=== PATIENT | male | born 1960 | race Caucasian/White ===

== ENCOUNTER 2019-01-04 10:09 | Day surgery (SDC) | payer BC ==
[~2019-01-04] VITALS: Ht 182.9 cm; Wt 93.0 kg
[2019-01-04] VITALS (9 sets, daily range): BP systolic 106–137; BP diastolic 50–82
[~2019-01-04 10:09] MED LIST: ceFAZolin sod 1 GM in NS 55 ML IVPB ONE
[2019-01-04] MEDS ORDERED: Kenalog-40 1ml Vial ONE (10:36)
[2019-01-04] MEDS ORDERED: Cocaine HCl 4% 4ml vial TOPIC ONE ×2 (10:36→11:46)
[2019-01-04] MEDS ORDERED: Oxymetazoline 0.05% Na Spray 30ml NASAL ONE ×2 (10:37→11:46)
[2019-01-04] MEDS ORDERED: Lidocaine 1% 10mg/ml/EPI 0.01mg/ml 50ml INJ ONE ×2 (10:37→11:46)
[2019-01-04] MEDS ORDERED: ASPIR 8181 MG ORAL (11:02)
[2019-01-04] MEDS ORDERED: LR 1000ml 1,000 ML IVLG SCH (11:22)
[2019-01-04] MEDS ORDERED: Bacitracin Oint UD TOPIC ONE (11:27)
[2019-01-04] MEDS ORDERED: Meperidine 50mg/ml Inj(FOR RIGORS ONLY) IVP PRN (11:30)
[2019-01-04] MEDS ORDERED: Acetaminophen (Non formulary) 100 ML IV ONE (11:30)
[2019-01-04] MEDS ORDERED: Sterile Water Irrig 1000ml IRRIG ONE (11:30)
[2019-01-04] MEDS ORDERED: Atropine Sulfate 0.4mg/ml inj IVP PRN (11:30)
[2019-01-04] MEDS ORDERED: Hydromorphone 0.5mg/0.5ml inj IVP PRN (11:30)
[2019-01-04] MEDS ORDERED: HYDROcodone/Acetamin 7.5/325 tab ORAL PRN (11:30)
[2019-01-04] MEDS ORDERED: Zemuron 50mg/5ml Inj IV ONE (11:30)
[2019-01-04] MEDS ORDERED: Labetalol 5mg/ml 20ml vial IV PRN (11:30)
[2019-01-04] MEDS ORDERED: DiphenhydrAMINE 50mg/ml Inj IVP PRN (11:30)
[2019-01-04] MEDS ORDERED: LORazepam Inj 2mg/ml 1ml IV PRN (11:30)
[2019-01-04] MEDS ORDERED: Labetalol 5mg/ml 20ml vial IV ONE (11:30)
[2019-01-04] MEDS ORDERED: Midazolam 2mg/2ml Inj IVP PRN (11:30)
[2019-01-04] MEDS ORDERED: Propofol 1,000mg/ 100ml btl IV ONE (11:30)
[2019-01-04] MEDS ORDERED: Ketorolac 30mg Inj IV PRN ×2 (11:30)
[2019-01-04] MEDS ORDERED: Metoclopramide 10mg/2ml Inj IVP PRN ×2 (11:30→16:30)
[2019-01-04] MEDS ORDERED: fentaNYL 100 mcg/2 mL IV PRN (11:30)
[2019-01-04] MEDS ORDERED: HYDROcodone/Acetamin 5/325 tab ORAL PRN (11:30)
[2019-01-04] MEDS ORDERED: LR 1000ml ONE (11:30)
[2019-01-04] MEDS ORDERED: oxyCODONE HCL/Acetaminophen 5/325mg ORAL PRN (11:30)
--- NOTE | 2019-01-04 11:35 | Pre-Procedure Note/Attestation ---
Pre-Procedure Note/Attestation Complete Prior to Procedure Planned Procedure: not applicable Procedure Narrative: nasal obstruction unresponsive to medication Indications for Procedure Pre-Operative Diagnosis: septal deviation, bilateral hypertrophied inferior turbinates, obstructing nasal deformity Attestation I attest that I discussed the nature of the procedure; its benefits; risks and complications; and alternatives (and the risks and benefits of such alternatives ), prior to the procedure, with the patient (or the patient's legal product sales representative). I attest that, if there was a reasonable possibility of needing a blood transfusion, the patient (or the patient's legal product sales representative) was given the [facility] standardized written summary, pursuant to the [employer] Blood Safety Act ([place] Health and Safety Code # 1645, as amended). I attest that I re-evaluated the patient just prior to the surgery and that there has been no change in the patient's H&P, except as documented below: Calos Levine MD Jan 04, 2019 11:35
[2019-01-04] MEDS ORDERED: NS Irrig 1000ml IRRIG ONE (11:46)
[2019-01-04] MEDS ORDERED: Betadine 4oz Bottle TOPIC ONE (11:46)
[2019-01-04] MEDS ORDERED: Lidocaine 1% Plain 30 ml INJ ONE ×3 (11:47→13:15)
[2019-01-04] MEDS ORDERED: fentaNYL 100 mcg/2 mL IV ONE ×2 (11:48→14:31)
[2019-01-04] MEDS ORDERED: Sodium Chloride 10ml vial INJ ONE (11:48)
[2019-01-04] MEDS ORDERED: Lidocaine 1% MPF 10mg/ml 5ml ONE (11:48)
[2019-01-04] MEDS ORDERED: Dexamethasone 4mg/ml vial ONE (11:48)
[2019-01-04] MEDS ORDERED: Ketamine 500mg Inj ONE (12:33)
[2019-01-04] MEDS ORDERED: Betadine 10% Oint 30gm TOPIC ONE (14:55)
[2019-01-04] MEDS ORDERED: Neostigmine 1mg/ml 10ml Inj ONE (14:59)
[2019-01-04] MEDS ORDERED: Glycopyrrolate 0.2mg/ml 1ml Vial ONE (14:59)
--- NOTE | 2019-01-04 15:33 | Brief Operative Note ---
Immediate Post Operative Note Operative Note Pre-op Diagnosis: septal deviation, bilateral hypertrophied inferior turbinates, obstructing nasal deformity Procedure: septoplasty, bilateral inferior turbinectomies with intramural coagulation, repair of obstructing nasal deformity with bank ribt cartilage Post-op Diagnosis: same as pre-op Surgeon: Calos Levine M.D. Anesthesiologist: Ashish Anesthesia: general Specimen: yes - septum Complications: none Condition: stable Fluids: ringers lactate Estimated Blood Loss: minimal Drains: none Packing: telfa Implant(s) used?: Yes - bank rib cartilage Calos Levine MD Jan 04, 2019 15:33
--- NOTE | 2019-01-04 15:56 | Anethesia Preoperative Eval ---
Anesthesia Pre-op PMH/ROS General Date of Evaluation: Jan 04, 2019 Time of Evaluation: 11:41 Anesthesiologist: Eda ASA Score: ASA 3 Mallampati Score Class I : Soft palate, uvula, fauces, pillars visible Class II: Soft palate, uvula, fauces visible Class III: Soft palate, base of uvula visible Class IV: Only hard plate visible Mallampati Classification: Class III Surgeon: Julianna Diagnosis: Deviated Septum Surgical Procedure: Septoplasty, Turbinectomies Anesthesia History: none Family History: no anesthesia problems Allergies: Coded Allergies: No Known Allergies (Unverified , 12/13/18) Medications: see eMAR Patient NPO?: Yes Past Medical History Cardiovascular: Reports: arrhythmia - AFib Ablated Neurologic/Psychiatric: Reports: other - Epilepsy PSxH Narrative: Back Sx Anesthesia Pre-op Phys. Exam Physician Exam Last Vital Signs Date Time Temp Pulse Resp B/P (MAP) Pulse Ox O2 Delivery O2 Flow Rate FiO2 01/04/19 11:17 Room Air 01/04/19 11:11 97.7 62 18 117/72 99 Constitutional: NAD Neurologic: CN 2-12 intact Cardiovascular: RRR Respiratory: CTA Gastrointestinal: S/NT/ND Airway Exam Mallampati Score: Class III MO: full ROM: limited Teeth: intact Anesthesia Pre-op A/P Risk Assessment & Plan Assessment: ASA 3 Plan: GA, SED, GlideScope Go Pre-Antibiotics Dru Grams Ancef IV Given Within 1 Hr of Incision: Yes Time Given: 12:01 Tarun Veras MD Jan 04, 2019 15:56
--- NOTE | 2019-01-04 15:59 | Immediate Post-Op Evaluation ---
Immediate Post-Op Evalulation Immediate Post-Op Evalulation Procedure: eptoplasty, Turbinectomies Date of Evaluation: Jan 04, 2019 Time of Evaluation: 16:03 IV Fluids: 1000 LR Blood Products: 0 Estimated Blood Loss: 75 Urinary Output: 0 Blood Pressure Systolic: 118 Blood Pressure Diastolic: 75 Pulse Rate: 77 Respiratory Rate: 16 O2 Sat by Pulse Oximetry: 99 Temperature (Fahrenheit): 97.1 Pain Score (1-10): 2 Nausea: No Vomiting: No Complications 0 Patient Status: awake, reacts, patent, none Hydration Status: adequate Dru Grams Ancef IV Given Within 1 Hr of Incision: Yes Time Given: 12:01 Tarun Veras MD Jan 04, 2019 15:59
--- NOTE | 2019-01-04 16:00 | NUR ---
RECEIVED PATIENT NOTED TO HAVE MARKED HEMATOMA AROUND BOTH EYES AND NASAL SWELLING . MINIMAL BLEEDING ON DRESSING CHANGED X 1 . ICE COMPRESSES APPLIED . INSTRUCTED TO BREATHE THROUGH HIS MOUTH AND KEEP ON UPRIGHT SITTING POSITION . NO C/O PAIN SLIGHT NAUSEA REGLAN 10 MG IVP GIVEN WITH RELIEF . V/S STABLE . DR CURRY AWARE
--- NOTE | 2019-01-04 16:01 | 48 Hour Post Anesthesia Eval ---
Post Anesthesia Evaluation Procedure: Septoplasty, Turbinectomies Date of Evaluation: Jan 04, 2019 Time of Evaluation: 18:21 Blood Pressure Systolic: 117 0: 74 Pulse Rate: 73 Respiratory Rate: 18 Temperature (Fahrenheit): 98.2 O2 Sat by Pulse Oximetry: 99 Airway: patent Nausea: No Vomiting: No Pain Intensity: 2 Hydration Status: adequate Cardiopulmonary Status: Stable Mental Status/LOC: patient returned to baseline Follow-up Care/Observations: 0 Post-Anesthesia Complications: 0 Follow-up care needed: ready to discharge Tarun Veras MD Jan 04, 2019 16:00
--- NOTE | 2019-01-05 01:00 | Operative Note - Dictated ---
DATE OF OPERATION: 01/04/2019 SURGEON: Calos Levine M.D. ANESTHESIOLOGIST: Dr. Veras. PREOPERATIVE DIAGNOSES: 1. Septal deviation. 2. Bilateral hypertrophied inferior turbinates. 3. Obstructing nasal deformity. POSTOPERATIVE DIAGNOSES: 1. Septal deviation. 2. Bilateral hypertrophied inferior turbinates. 3. Obstructing nasal deformity. PROCEDURES: 1. Septoplasty. 2. Bilateral inferior turbinectomies with intramural coagulation. 3. Repair of obstructing nasal deformity with grafts. INDICATIONS FOR SURGERY: The patient is a 58-year-old male, who complains of nasal obstruction which was unrelieved by medication. His examination revealed horribly twisted nose with the upper portion of his nose being severely deviated to the left and collapse of the right mid vault area narrowing both nasal inflow tract and internal valves. Intranasally, the patient was found to have a severe right septal deviation which was convex in the right nasal cavity over a large right maxillary crest spur extended inferiorly all the way to the posterior choanae. Further examination revealed missing lower portion of the inferior turbinates, but that portion remained significantly hypertrophied contributing to the patient's right greater than left nasal airway obstruction. PROCEDURE AND FINDINGS: The patient was brought to the operating room while premedicated and have received preoperative antibiotics. He was then placed in supine position on the operating room table. After the patient underwent successful endotracheal intubation, he was given IV sedation. Sterile Q-tip saturated with Betadine were used to sterilize the intranasal cavity. Approximately, 32 mL of 1% Xylocaine with 1:100,000 epinephrine were used to inject the nasal septal frameworks. Less than 200 mg of cocaine was used in intranasal packing. Because of the patient's severe septal deviation and hypertrophied turbinates along with the obstructing nasal deformity, it was very hard to pack either nasal chamber. Prior to the injection, a sterile marking pen was used to outline the large right mid vault collapsed. The patient was then prepped and draped in usual sterile fashion. After a suitable period of time had for vasoconstriction, the packing was removed. A #15 blade was used to make incisions in the upper and lower lateral cartilage carried to the septal angle and then slight amount on the right inferior septal side. A similar procedure was performed on the left side with incisions made with #15 blade between the upper and lower lateral cartilage, carried to the septal angle, and then along the inferior septal region. Extensive undermining was performed. A septal vein was appreciated and this was partially controlled with cautery. The patient appeared to bleed throughout the case of a constant ooze, which finally subsided significantly and the case proceeded. The bleeding fairly well controlled. A periosteal elevator was used to elevate the periosteum off the nasal bones. A left-sided junction tunnel was then accomplished and the left upper lateral cartilage was from the septum using sharp dissection. A medial osteotomy on the left side only was performed. Our attention was then turned to the intranasal obstruction. With a #15 blade, the right inferior septal incision was then continued. A right mucoperichondrial mucoperiosteal flap was then elevated. An incision was made between the cartilage and bony septum and a left mucoperiosteal flap was then elevated. That portion of overriding and obstructing perpendicular plate of the ethmoid and vomer bone were incised in strips with CRPS, from any attachments, and removed from the field of operation. A similar procedure was then performed on the cartilaginous septum maintaining good anterior and inferior support. A mallet and chisel were then used to remove the large obstructing right maxillary crest spur. Bipolar intramural coagulation of both inferior turbinates was performed. The inferior turbinates were then outfractured. A left lateral osteotomy and transverse osteotomy was accomplished with fracturing of the left nasal bone, which almost to a 35-degree angle toward midline. This allowed the entire nasal pyramid to be rotated to the right with straightening of the nasal pyramid and alleviated much of the internal valve collapse. Re-examination revealed the nose to be straight and the right mid vault area collapse appeared to be corrected. Re-examination still revealed the crescent of the right mid vault and a columella. A banked rib cartilage which was brought into the field of operation was then cut to fit the 2 areas with soaked in Betadine solution. After Betadine prep, the columella was injected with approximately 22 mL of 1% Xylocaine with 1:100,000 epinephrine. The banked rib cartilage was removed from the field of operation and one piece was placed in the columella, the other above the lateral aspect of the internal valve over the upper lateral cartilage giving it extra support. Re-examination now revealed both pieces of cartilage were in good position with alleviation of the obstruction. All blood was suctioned from the nose and nasopharynx area. A 4-0 plain was used to close the septal incision as well as splint the septum and then closed between the cartilage incisions at the areas previously crosshatched. Telfa coated with povidone ointment was placed over the Gelfoam, which had been secured with a suture of 3-0 silk intranasally. External dressing consisting of adhesive material paper, adhesive tape, and a cast were then secured in place and the procedure was terminated. The patient tolerated the procedure well and left the operating room in satisfactory condition. ESTIMATED BLOOD LOSS: Negligible. COUNTS: Sponge and needle count were correct. Calos Levine M.D. DR: Sera JOB#: [id number] CC:
== END 2019-01-04 17:45 | disposition home or self-care (01) ==
LOC: SUR 10:09
DX: J34.2 Deviated nasal septum (principal); J34.3 Hypertrophy of nasal turbinates; M95.0 Acquired deformity of nose; G40.909 Epilepsy, unspecified, not intractable, without status epilepticus; Z79.82 Long term (current) use of aspirin
CPT/HCPCS: 30140; 30465; 30520; J0690; J1100; J2001; J2250; J2405; J2704; J2710; J2765; J3010; J3490; 94003; 94150; A4246